=== PATIENT | female | born 1975 | race Caucasian/White ===

== ENCOUNTER 2020-12-04 08:04 | Emergency (ER) | payer OTHER, SELFPAY ==
[2020-12-04 08:15] VITALS: BP 147/74; PULSE 91; RESP 16; TEMP 36.4; O2SAT 99
--- NOTE | 2020-12-04 08:16 | ED.GENADULT ---
HPI - General Adult General Chief complaint: Back Pain/Injury Stated complaint: right side thigh/leg pain Time Seen by Provider: 12/04/20 08:19 Source: patient and RN notes reviewed Mode of arrival: ambulatory Limitations: no limitations History of Present Illness HPI narrative: 45-year-old female presents with complaints of right lower back pain for 21 days. Danita reports presenting to work today with increasing pain, sent home due to difficulty walking. Ibuprofen, 800mg last this morning without relief. Denies new injuries or falls. Denies back problems. Radiating pain into RT buttock down RT leg. No numbness or tingling. Denies fever or chills. ?No upper or lower extremity weakness. Exacerbating factors consist of prolonged standing and bending. Denies nausea, vomiting, or abdominal pain. Tolerating po intake well. Denies problems with urinating or having a bowel movement, LBM this am per patient and normal. No flank pain or hematuria or dysuria. Remains active. The patient reports she has not been diagnosed with COVID-19. The patient reports she is not waiting for the results of a COVID-19 lab test. COVID-19 test on 12/03/2020 NEGATIVE done at work. The patient reports she does not have a new or worsening cough or shortness of breath. Denies chest pain. The patient reports she does not have any rhinorrhea, congestion, sore throat, loss of taste or smell, and diarrhea. Denies recent traveling. Denies concerns for COVID-19 or exposures. At this time, the patient is not suspected of having COVID-19. Some parts of this dictation were generated by voice recognition software and may contain typographical and/or grammatical inaccuracies. Related Data Allergies Allergy/AdvReac Type Severity Reaction Status Date / Time No Known Allergies Allergy Verified 12/04/20 08:18 Review of Systems Review of Systems: Narrative: CONSTITUTIONAL: Denies fever, chills, sweats. EYES: Denies visual changes, redness, discharge. ENT: Denies rhinorrhea, congestion, sore throat, otalgia. CARDIOVASCULAR: Denies chest pain, palpitations, edema. RESPIRATORY: Denies dyspnea, wheezing, cough. GASTROINTESTINAL: Denies abdominal pain, nausea, vomiting, diarrhea. GENITOURINARY: Denies dysuria, hematuria, abnormal discharge. SKIN: Denies rash or itching. MUSCULOSKELETAL: Complains of right lower back pain, radiating into right buttock down right leg. Denies joint pain or myalgia. NEUROLOGIC: Denies numbness or focal weakness. PSYCHIATRIC: Denies anxiety or depression. All systems reviewed & are unremarkable except as noted in HPI and below. [facility] Past Medical History Medical History (Updated 12/05/20 @ 00:00 by Leroy Patterson) Bronchitis Lower leg fracture RT Obesity Surgical History Surgical History (Updated 12/04/20 @ 12:42 by CHUNG Scott) History of tubal ligation Family History Family History (Updated 12/04/20 @ 12:43 by CHUNG Scott) Father Alcohol abuse Mother Heart disease Other Family history of cardiovascular disease Hypertension Social History Social History (Updated 12/04/20 @ 12:44 by CHUNG Scott) Smoking status: Current every day smoker Tobacco type: cigarettes Second hand tobacco smoke exposure: No (spouse) Alcohol intake: former Alcohol use details: none in 10 years Substance use: current Substance use type: marijuana Living arrangements: with family Occupation/Education: occupation Gender identity (if verbalized by the patient): Female Sexual Orientation (if Verbalized by the Patient): Straight or Heterosexual Comments At time of signature, agree with the nurse past medical, surgical, social, and family history. There is no relevant family history pertinent to the presenting complaint. Exam Narrative: Exam Narrative: GENERAL: This is a well-nourished, well-developed patient, in no apparent distress. Talks in full sen
== END 2020-12-04 08:47 | disposition home or self-care (01) ==
PROVIDERS: Emergency Provider Nurse Practitioner Family
DX: M54.5 Low back pain (principal); M79.651 Pain in right thigh; F17.210 Nicotine dependence, cigarettes, uncomplicated; E66.9 Obesity, unspecified; Z68.39 Body mass index [BMI] 39.0-39.9, adult
CPT/HCPCS: 99213; G0463